=== PATIENT | female | born 2000 | race Caucasian/White ===

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

== ENCOUNTER 2025-03-01 01:51 | Emergency (ER) | payer OTHER ==
[~2025-03-01] VITALS: Ht 152.4 cm; Wt 68.0 kg
[~2025-03-01 01:51] MED LIST changes: +AMOCLA875 PO; +CEPH500 PO
[2025-03-01 02:18] VITALS: BP 132/89
[2025-03-01] MEDS ORDERED: AMOCLA875 PO (03:02)
== END 2025-03-01 03:30 | disposition home or self-care (01) ==
LOC: ER 01:51
DX: L03.011 Cellulitis of right finger (principal); F17.200 Nicotine dependence, unspecified, uncomplicated
CPT/HCPCS: 26010; 99283-25; A9270